=== PATIENT | male | born 1985 | race Asian ===

== ENCOUNTER 2016-11-01 10:24 | Emergency (ER) | payer MEDICAID, OTHER ==
[~2016-11-01] VITALS: Ht 172.7 cm; Wt 83.9 kg
[2016-11-01 10:24] VITALS: BP 149/90; PULSE 89; RESP 16; TEMP 98.8; O2SAT 98
[~2016-11-01 10:24] MED LIST: ESCI10TA PO; NOR10 PO; OLAN10TA3 PO
[2016-11-01] MEDS ORDERED: KETOROLAC TROMETHAMINE 60 MG/2 ML VIAL IM ONE (10:45)
[2016-11-01] MEDS ORDERED: DEXAMETHASONE SOD PHOSPHATE 10 MG/ML VIAL IM ONE (10:45)
[2016-11-01 11:36] VITALS: BP 126/82; PULSE 78; RESP 18; TEMP 98.5; O2SAT 99
== END 2016-11-01 11:36 | disposition home or self-care (01) ==
LOC: SED 10:24
DX: J20.9 Acute bronchitis, unspecified (principal)
CPT/HCPCS: 96372; 99284; J1100; J1885

== ENCOUNTER 2017-05-13 15:08 | Emergency (ER) | payer MEDICAID ==
[~2017-05-13] VITALS: Ht 172.7 cm; Wt 90.7 kg
--- NOTE | 2017-05-13 15:10 | NUR ---
Pt brought to bed 1 by BLS, report endorsed to Laure FOSTER
--- NOTE | 2017-05-13 15:13 | NUR ---
ER at bedside examining patient.
[2017-05-13 15:16] VITALS: BP_SYST 145
[2017-05-13 15:30] LABS: BASOPHILS % (AUTO) 0.3 % (0.0-2.0); EOSINOPHILS % (AUTO) 0.3 % (0.0-4.0); HEMATOCRIT 40.3 % (36-54); HEMOGLOBIN 13.7 g/dL (14.0-18.0); LYMPHOCYTES % (AUTO) 26.9 % (20.5-51.5); MEAN CORPUSCULAR HEMOGLOBIN 31 pg (27-31); MEAN CORPUSCULAR HGB CONC 34 % (32-36); MEAN CORPUSCULAR VOLUME 91 fL (79.0-98.0); MONOCYTES # (AUTO) 0.4 K/uL (0.0-1.0); MONOCYTES % (AUTO) 5.8 % (1.7-9.3); NEUTROPHILS # (AUTO) 5.1 K/uL (1.8-7.7); NEUTROPHILS % (AUTO) 66.7 % (40.0-70.0); PLATELET COUNT (AUTO) 344 K/uL (130-430); RED BLOOD CELL COUNT(AUTO) 4.41 MIL/uL (4.2-6.2); RED CELL DISTRIBUTION WIDTH 12.4 % (9.0-15.0); WHITE BLOOD COUNT (AUTO) 7.5 K/uL (4.8-10.8)
--- NOTE | 2017-05-13 15:30 | NUR ---
Pt presents to ED with abd pain. Pt reports having suicidal ideation x 1 month. Pt reports swallowing " a few needles" last month, which he says " did not feel good". Pt believes needles are attributing to abd pain. pain is 5/10 now. Pt cont to have SI with no new plan. Pt with hx of Schizophrenia. Pt reports taking his psych meds regularly. NAD
--- NOTE | 2017-05-13 15:34 | NUR ---
PT IS STABLE SITTING IN BED
--- NOTE | 2017-05-13 16:04 | NUR ---
Pt wanded by security. [place] taken out of pockets and taken to security office. No other items found on pt at this time.
[2017-05-13 16:05] LABS: ANION GAP 11 (5-15); CALCIUM 9.7 mg/dL (8.4-11.0); CHLORIDE 103 mmol/L (98-107); CREATININE 1.02 mg/dL (0.55-1.30); GLUCOSE 145 mg/dL (70-99); POTASSIUM 4.1 mmol/L (3.5-5.1); SODIUM SERUM 138 mmol/L (136-145); UREA NITROGEN, BLOOD 13 mg/dL (8-21)
[2017-05-13 16:10] LABS: ALANINE AMINOTRANSFERASE 20 U/L (12-78); ALBUMIN 4.3 g/dL (3.4-4.8); ASPARTATE AMINOTRANSFERASE 14 U/L (10-37); LIPASE 142 U/L (73-393); TOTAL BILIRUBIN 0.6 mg/dL (0.0-1.0)
[2017-05-13 16:10] LABS: BILIRUBIN,URINE NEGATIVE (NEGATIVE); BLOOD, URINE NEGATIVE (NEGATIVE); CLARITY/URINE CLEAR (CLEAR); COLOR,URINE YELLOW (YELLOW); GLUCOSE,URINE NEGATIVE (NEGATIVE); KETONES,URINE NEGATIVE (NEGATIVE); LEUKOCYTE ESTERASE ,URINE NEGATIVE (NEGATIVE); NITRITE, URINE NEGATIVE (NEGATIVE); PH,URINE 6.5 (5.0-8.0); PROTEIN URINE NEGATIVE (NEGATIVE); UROBILINOGEN,URINE 0.2 (0.2-1.0)
[2017-05-13 16:16] LABS: ACETAMINOPHEN < 1 ug/mL (1-30); GFR AFRICAN AMERICAN 108 mL/min (>90)
[2017-05-13 16:17] LABS: ALCOHOL, BLOOD < 3 mg/dL (<10)
[2017-05-13 16:19] LABS: BARBITURATE, URINE NEGATIVE (NEG <=200); BENZODIAZEPINE, URINE NEGATIVE (NEG <=150); CANNABINOID, URINE NEGATIVE (NEG <=50); COCAINE, URINE NEGATIVE (NEG <=150); METHAMPHETAMINES SCREEN,URINE NEGATIVE (NEG <=500); OPIATE, URINE NEGATIVE (NEG <=100); PHENCYCLIDINE SCREEN,URINE NEGATIVE (NEG <=25); UR TRICYCLIC ANTIDEPRESSANTS NEGATIVE (NEG <=300); URINE AMPHETAMINE NEGATIVE (NEG <=500); URINE METHADONE NEGATIVE (NEG <=200); URINE OXYCODONE SCREEN NEGATIVE (NEG <=100); URINE PROPOXYPHENE SCREEN NEGATIVE (NEG <=300)
--- NOTE | 2017-05-13 16:32 | NUR ---
Edna clifford in [facility] - 05/13/17 at 1636 by [email or web address] PT IS STABLE AKED TO USE BATHROOM
--- NOTE | 2017-05-13 16:36 | NUR ---
PT IS STABLE ASKED TO USE BATHROOM
--- NOTE | 2017-05-13 17:22 | NUR ---
PT IS STABLE IN BED
--- NOTE | 2017-05-13 18:00 | NUR ---
PT JUST FINISHED HIS DINNER,HIS LYING ON HIS BED COVERING HIS FACE.PT IS FINE FOR NOW.
--- NOTE | 2017-05-13 18:05 | NUR ---
RECEIVED CALL FROM [facility]. ALL QUESTIONS ANSWERED. THEY WILL COME TO EVALUATE PT.
--- NOTE | 2017-05-13 19:00 | NUR ---
PT IS AWAKE RESTING ON HIS BED.PT IS FINE.
--- NOTE | 2017-05-13 19:15 | NUR ---
Pt is resting comfortably. VSS. Will continue to monitor. AAOx4. No distress noted.
--- NOTE | 2017-05-13 20:00 | NUR ---
PT IS SLEEPING COMFORTABLY NO SIGN O DISTRESS.CONTINUE OF MONITORING.
--- NOTE | 2017-05-13 20:15 | NUR ---
Pt is resting comfortably. VSS. Will continue to monitor. AAOx4. No distress noted.
--- NOTE | 2017-05-13 23:15 | NUR ---
Pt is resting comfortably. VSS. Will continue to monitor. AAOx4. No distress noted.
--- NOTE | 2017-05-14 00:15 | NUR ---
Pt is resting comfortably. VSS. Will continue to monitor. AAOx4. No distress noted.
--- NOTE | 2017-05-14 01:15 | NUR ---
Pt is resting comfortably. VSS. Will continue to monitor. AAOx4. No distress noted.
--- NOTE | 2017-05-14 02:15 | NUR ---
Pt is resting comfortably. VSS. Will continue to monitor. AAOx4. No distress noted.
--- NOTE | 2017-05-14 03:15 | NUR ---
Pt is resting comfortably. VSS. Will continue to monitor. AAOx4. No distress noted.
--- NOTE | 2017-05-14 04:15 | NUR ---
Pt is resting comfortably. VSS. Will continue to monitor. AAOx4. No distress noted.
--- NOTE | 2017-05-14 04:19 | NUR ---
Geraldine from [facility] called and stated that they will accept this patient to their facility. Accepting MD is Dr. Rao Calvo.
--- NOTE | 2017-05-14 04:45 | NUR ---
Patient to be transferred to [facility]. Is being transferred due to higher level of care. Receiving facility has accepting physician and available space. ER physician has signed transfer form. Patient or responsible libertarian has agreed to transfer and signed form. Patient belongings inventoried and will be sent with patient. Copy of nursing notes, lab reports, EKG, Physicians Orders and X-rays to be sent with patient. Report called to Geraldine at receiving facility. Receiving physician is Dr. Calvo. [facility] ambulance service has been on scene for transfer. ETA is 25 mins.
[2017-05-14 04:50] VITALS: BP_SYST 126
== END 2017-05-14 04:45 ==
LOC: SED 15:08
DX: R45.851 Suicidal ideations (principal); F20.9 Schizophrenia, unspecified; I10 Essential (primary) hypertension
CPT/HCPCS: 36415; 71010; 74000; 80053; 80307; 81003; 83690; 85025; 93005; 99285; G0480; G0481; G0482

== ENCOUNTER 2018-02-09 08:11 | Emergency (ER) | payer MEDICAID ==
[~2018-02-09] VITALS: Ht 172.7 cm; Wt 104.3 kg
[2018-02-09 08:15] VITALS: BP_SYST 137
[2018-02-09] MEDS ORDERED: LORazepam 1 MG TABLET PO ONE (08:45)
== END 2018-02-09 11:12 | disposition home or self-care (01) ==
LOC: SED 08:11
DX: F41.9 Anxiety disorder, unspecified (principal); F20.9 Schizophrenia, unspecified; I10 Essential (primary) hypertension; Z79.899 Other long term (current) drug therapy
CPT/HCPCS: 99283

== ENCOUNTER 2018-08-22 12:34 | Emergency (ER) | payer MEDICAID ==
[~2018-08-22] VITALS: Ht 172.7 cm; Wt 90.7 kg
[2018-08-22] MEDS ORDERED: NACL 0.9% 1,000 ML IV ONE (12:40)
[2018-08-22 12:42] VITALS: BP_SYST 120
[2018-08-22] MEDS ORDERED: ONDANSETRON HCL 4 MG/2 ML VIAL IVP ONE (12:45)
[2018-08-22] MEDS ORDERED: DIPHENHYDRAMINE INJ 50 MG/ML VIAL IVP ONE (12:45)
[2018-08-22 13:18] LABS: HEMATOCRIT 42.7 % (36-54); HEMOGLOBIN 14.4 g/dL (14.0-18.0); MEAN CORPUSCULAR HEMOGLOBIN 32 pg (27-31); MEAN CORPUSCULAR HGB CONC 34 % (32-36); MEAN CORPUSCULAR VOLUME 96 fL (79.0-98.0); RED BLOOD CELL COUNT(AUTO) 4.47 MIL/uL (4.2-6.2); WHITE BLOOD COUNT (AUTO) 4.7 K/uL (4.8-10.8)
[2018-08-22 13:19] LABS: BASOPHILS % (AUTO) 0.9 % (0.0-2.0); EOSINOPHILS # (AUTO) 0.1 K/uL (0.0-0.4); EOSINOPHILS % (AUTO) 1.3 % (0.0-4.0); LYMPHOCYTES # (AUTO) 1.1 K/uL (1.0-5.5); LYMPHOCYTES % (AUTO) 23.8 % (20.5-51.5); MONOCYTES # (AUTO) 0.2 K/uL (0.0-1.0); MONOCYTES % (AUTO) 4.5 % (1.7-9.3); NEUTROPHILS # (AUTO) 3.2 K/uL (1.8-7.7); NEUTROPHILS % (AUTO) 69.5 % (40.0-70.0); PLATELET COUNT (AUTO) 298 K/uL (130-430); RED CELL DISTRIBUTION WIDTH 13.8 % (9.0-15.0)
[2018-08-22 13:25] LABS: PROTHROMBIN TIME 10.4 SECS (9.5-12.5)
[2018-08-22 13:34] LABS: CALCIUM 8.9 mg/dL (8.4-11.0); CREATININE 0.66 mg/dL (0.55-1.30); POTASSIUM 3.8 mmol/L (3.5-5.1)
[2018-08-22 13:38] LABS: TOTAL BILIRUBIN 0.5 mg/dL (0.0-1.0)
[2018-08-22 14:45] VITALS: BP_SYST 122
== END 2018-08-22 14:54 | disposition home or self-care (01) ==
LOC: SED 12:34
DX: G44.209 Tension-type headache, unspecified, not intractable (principal); I10 Essential (primary) hypertension; F20.9 Schizophrenia, unspecified; Z79.899 Other long term (current) drug therapy
CPT/HCPCS: 36415; 80053; 82150; 83690; 85025; 85610; 85730; 96374; 96375; 99283; J1200; J2405; J7030

== ENCOUNTER 2019-03-09 22:08 | Emergency (ER) | payer MEDICAID ==
[~2019-03-09] VITALS: Ht 172.7 cm; Wt 97.5 kg
[2019-03-09 22:13] VITALS: BP_SYST 133
[2019-03-09] MEDS ORDERED: ACETAMINOPHEN 325 MG TABLET PO ONE (23:30)
[2019-03-09] MEDS ORDERED: IBUPROFEN 600 MG TABLET PO ONE (23:30)
[2019-03-10 06:30] VITALS: BP_SYST 133
== END 2019-03-10 06:30 | disposition home or self-care (01) ==
LOC: SED 22:08
DX: R51 Headache (principal); F20.9 Schizophrenia, unspecified; I10 Essential (primary) hypertension; Z79.899 Other long term (current) drug therapy
CPT/HCPCS: 99283